=== PATIENT | female | born 1965 | race Caucasian/White ===

== ENCOUNTER 2019-07-23 11:43 | Day surgery (SDC) | payer OTHER, BC ==
[2019-07-23] MEDS ORDERED: PANT20TA3 PO (12:34)
[2019-07-23] MEDS ORDERED: acetylcysteine 200 MG/ml 4ml vial PO ONE (12:55)
[2019-07-23 13:00] VITALS: BP 154/103
[2019-07-23] MEDS ORDERED: LORazepam 1 MG tablet PO ONE (13:25)
[2019-07-23] MEDS ORDERED: LORazepam 0.5 MG tablet PO ONE (13:35)
--- NOTE | 2019-07-23 15:45 | NUR ---
DR SOLIS ATTEMPTED TO DRAIN MUCIN FROM ABDOMEN OVER A APPROX 3 HOURS. SALINE FLUSH AND MUCOMYST WERE ADMINISTERED THROUGH THE DRAIN BY DR SOLIS. APPROX 100ML YELLOW FLUID DRAINED. DRAIN LEFT INTACT AND COVERED WITH GAUZE AND TAGADERM. PT VITALS STABLE AT DISCHARGED 140/95BP, 102HR, 16RR, 93%RA. PT DISCHARGED HOME WITH ALL BELONGINGS.
== END 2019-07-23 15:45 | disposition home or self-care (01) ==
LOC: SSTAY O 11:43
PROVIDERS: ATTEND Radiology Vascular & Interventional Radiology
DX: R19.09 Other intra-abdominal and pelvic swelling, mass and lump (principal); K66.8 Other specified disorders of peritoneum
CPT/HCPCS: 49084; 49406

== ENCOUNTER 2022-12-01 09:09 | Day surgery (SDC) | payer BC, MEDICARE ==
[~2022-12-01] VITALS: Ht 170.2 cm; Wt 58.1 kg
[~2022-12-01 09:09] MED LIST: PANT20TA18 PO
[2022-12-01] MEDS ORDERED: LIDOcaine 1% 30ml preserv. free vial SQ STA (09:11)
[2022-12-01 09:30] VITALS: BP 129/103
[2022-12-01] MEDS ORDERED: albumin 25% 100mL bottle x 1 IV PRN (09:30)
[2022-12-01] MEDS ORDERED: TRIF1TAB7 PO (09:38)
[2022-12-01] MEDS ORDERED: OLAN5TAB75 PO (09:38)
[2022-12-01] MEDS ORDERED: ONDA-103 PO (09:38)
[2022-12-01] MEDS ORDERED: LORA10TA7 PO (09:38)
[2022-12-01] MEDS ORDERED: ondansetron 4mg rapidly disintigrating tab PO ONE (09:40)
[2022-12-01 10:30] VITALS: BP 130/73
[2022-12-01 10:38] VITALS: BP 130/73
[2022-12-01 10:45] VITALS: BP 106/77
[2022-12-01 11:00] VITALS: BP 112/78
[2022-12-01 11:15] VITALS: BP 130/73
== END 2022-12-01 11:00 | disposition home or self-care (01) ==
LOC: SSTAY O 09:09
PROVIDERS: ATTEND Radiology Vascular & Interventional Radiology
DX: C18.7 Malignant neoplasm of sigmoid colon (principal); J91.0 Malignant pleural effusion; K21.9 Gastro-esophageal reflux disease without esophagitis; Z98.890 Other specified postprocedural states; Z93.3 Colostomy status; Z79.899 Other long term (current) drug therapy
CPT/HCPCS: 32555; J3490; A6449; C1729